=== PATIENT | female | born 1955 | race African-American/Black ===

== ENCOUNTER 2020-05-15 11:32 | Emergency (ER) | payer MEDICARE, OTHER ==
[~2020-05-15] VITALS: Ht 160 cm; Wt 95.5 kg
[~2020-05-15 11:32] MED LIST: AMOX500C2 PO; ASCO500 PO; ASPI-1111 PO; CYAN500T2 PO; CYCL05OE OU; DIPH1TAB24 PO; IBUP-2070 PO; IRON-24 PO; LORA10TA7 PO; NIFE30TA98 PO; OXYC-601 PO; SITA1TAB2 PO; SYMB8060 IH
[2020-05-15] MEDS ORDERED: KETOROLAC TROMETHAMINE 30 MG/ML VIAL IM ONE (12:15)
[2020-05-15] MEDS ORDERED: CYCLOBENZAPRINE HCL 10 MG TABLET PO ONE (12:15)
[2020-05-15] MEDS ORDERED: HYDROCODONE/ACETAMINOPHEN 5-325 MG TABLET PO ONE (12:15)
[2020-05-15 13:23] VITALS: BP 139/58
== END 2020-05-15 13:34 | disposition home or self-care (01) ==
LOC: EMS 11:32
DX: M79.18 Myalgia, other site (principal); J44.9 Chronic obstructive pulmonary disease, unspecified; E11.9 Type 2 diabetes mellitus without complications; E78.00 Pure hypercholesterolemia, unspecified; I10 Essential (primary) hypertension; Z90.710 Acquired absence of both cervix and uterus; F17.210 Nicotine dependence, cigarettes, uncomplicated; Z88.4 Allergy status to anesthetic agent; Z79.899 Other long term (current) drug therapy; Z79.82 Long term (current) use of aspirin
CPT/HCPCS: 71045; 82962; 96372; 99283; J1885

== ENCOUNTER 2021-03-14 20:40 | Emergency (ER) | payer MEDICARE, OTHER ==
[~2021-03-14] VITALS: Ht 160 cm; Wt 95.5 kg
[~2021-03-14 20:40] MED LIST changes: -AMOX500C2 PO; -ASPI-1111 PO; +ASPI-1444 PO; +OXYC-490 PO; -OXYC-601 PO
[2021-03-14] MEDS ORDERED: HYDROmorphone 2 MG/ML VIAL IVP ONE (21:30)
[2021-03-14] MEDS ORDERED: OxyCODONE HCL/ACETAMINOPHEN 5-325 MG TABLET PO ONE (21:45)
[2021-03-14 22:55] VITALS: BP 129/65
== END 2021-03-14 23:08 | disposition home or self-care (01) ==
LOC: EMS 20:47
DX: M54.42 Lumbago with sciatica, left side (principal); M54.41 Lumbago with sciatica, right side; R07.9 Chest pain, unspecified; G89.29 Other chronic pain; F17.210 Nicotine dependence, cigarettes, uncomplicated; J44.9 Chronic obstructive pulmonary disease, unspecified; E11.9 Type 2 diabetes mellitus without complications; E78.00 Pure hypercholesterolemia, unspecified; I10 Essential (primary) hypertension; Z90.710 Acquired absence of both cervix and uterus; Z79.82 Long term (current) use of aspirin
CPT/HCPCS: 71045; 99283

== ENCOUNTER 2022-03-27 08:29 | Emergency (ER) | payer MEDICARE, OTHER ==
[~2022-03-27] VITALS: Ht 160 cm; Wt 97.3 kg
[2022-03-27] MEDS ORDERED: HYDR200T38 PO (08:37)
[2022-03-27 09:35] LABS: BASOPHILS % (AUTO) 0.7 % (0.0-2.0); EOSINOPHILS % (AUTO) 1.3 % (1.0-6.0); HEMATOCRIT 35.6 % (36-46); HEMOGLOBIN 11.5 g/dL (12.0-16.0); LYMPHOCYTES # (AUTO) 1.7 K/uL (1.0-4.8); LYMPHOCYTES % (AUTO) 25.2 % (22.0-44.0); MEAN CORPUSCULAR HEMOGLOBIN 27.6 pg (26.0-34.0); MEAN CORPUSCULAR HGB CONC 32.3 G/dL (31.0-37.0); MEAN CORPUSCULAR VOLUME 86 fL (80-100); MONOCYTES # (AUTO) 0.5 K/uL (0.1-1.0); MONOCYTES % (AUTO) 8.1 % (2.0-9.0); NEUTROPHILS # (AUTO) 4.4 K/uL (1.8-7.7); NEUTROPHILS % (AUTO) 64.7 % (40.0-70.0); PLATELET COUNT (AUTO) 327 K/uL (150-450); RED BLOOD CELL COUNT(AUTO) 4.16 MIL/uL (4.00-5.20); RED CELL DISTRIBUTION WIDTH 15.9 % (11.5-14.5)
[2022-03-27 09:44] LABS: ANION GAP 3 mmol/L (8-16); CALCIUM, TOTAL 8.8 mg/dL (8.8-10.5); CARBON DIOXIDE 38 mmol/L (22-29); CHLORIDE 101 mmol/L (98-107); CREATININE 0.59 mg/dL (0.60-1.30); GLUCOSE,RANDOM 137 mg/dL (70-110); POTASSIUM 3.2 mmol/L (3.5-5.1); SODIUM SERUM 142 mmol/L (136-145); UREA NITROGEN, BLOOD 8 mg/dL (7-18)
[2022-03-27 09:45] LABS: APPEARANCE,URINE HAZY (CLEAR); BILIRUBIN,URINE NEGATIVE (NEGATIVE); GLUCOSE, URINE (UA) TRACE mg/dL (NEGATIVE); KETONES,URINE NEGATIVE (NEGATIVE); LEUKOCYTE ESTERASE ,URINE SMALL (NEGATIVE); NITRATE,URINE NEGATIVE (NEGATIVE); OCCULT BLOOD,URINE NEGATIVE (NEGATIVE); PH,URINE 6.5 (5.0-8.0); PROTEIN,URINE 30-70 mg/dL (NEGATIVE); SPECIFIC GRAVITIY, URINE 1.032 (1.003-1.030)
[2022-03-27 09:50] LABS: ALANINE AMINOTRANSFERASE 13 U/L (12-78); ALBUMIN 3.4 g/dL (3.4-5.0); ALKALINE PHOSPHATASE 91 U/L (46-116); ASPARTATE AMINOTRANSFERASE 14 U/L (15-37); BILIRUBIN,TOTAL 0.4 mg/dL (0.1-1.0); LIPASE 106 U/L (73-393); TOTAL PROTEIN, SERUM 7.5 g/dL (6.4-8.2)
[2022-03-27 09:51] LABS: GLOMERULAR FILTR. RATE CALC > 60 mL/min (>60)
[2022-03-27 10:34] LABS: BACTERIA,URINE Few /HPF (None Seen); RBC,URINE None Seen /HPF (0-2); SQUAMOUS EPITHELIAL CELL,UR Few /LPF (None Seen); WBC,URINE None Seen /HPF (0-5)
[2022-03-27] MEDS ORDERED: MONT-40 PO (11:28)
[2022-03-27] MEDS ORDERED: BUDE10.27 IH (11:28)
[2022-03-27] MEDS ORDERED: ALBU8HFA IH (11:28)
[2022-03-27] MEDS ORDERED: SITA1TAB6 PO (11:28)
[2022-03-27] MEDS ORDERED: MAG HYDROX/AL HYDROX/SIMETH ES 30 ML SUSPENSION UDCUP PO ONE (11:30)
[2022-03-27] MEDS ORDERED: PHENOBARB/HYOSCY/ATROPINE/SCOP 5 ML UDCUP ELIXIR PO ONE (11:30)
[2022-03-27] MEDS ORDERED: OxyCODONE HCL/ACETAMINOPHEN 5-325 MG TABLET PO ONE (13:15)
[2022-03-27] MEDS ORDERED: KETOROLAC TROMETHAMINE 60 MG/2 ML VIAL IM ONE (13:15)
[2022-03-27 14:24] VITALS: BP 145/82
[2022-03-27] MEDS ORDERED: METR500 PO (14:51)
== END 2022-03-27 15:05 | disposition home or self-care (01) ==
LOC: EMS 08:40
DX: M79.18 Myalgia, other site (principal); R10.9 Unspecified abdominal pain; J44.9 Chronic obstructive pulmonary disease, unspecified; E11.9 Type 2 diabetes mellitus without complications; I10 Essential (primary) hypertension; Z88.4 Allergy status to anesthetic agent; Z79.899 Other long term (current) drug therapy
CPT/HCPCS: 80053; 81001; 83690; 84484; 85025; 36415; 99284; 93005; 96372; J1885

== ENCOUNTER 2024-07-21 20:44 | Emergency (ER) | payer MEDICARE, MEDICAID ==
[~2024-07-21] VITALS: Ht 162.6 cm; Wt 97.3 kg
[~2024-07-21 20:44] MED LIST changes: +ALBU18HF12 IH; +AMLO-258 PO; -ASCO500 PO; -ASPI-1444 PO; +ATOR10TA PO; -CYAN500T2 PO; -CYCL05OE OU; +DICY-1 PO; +DIPH12.55 PO; -DIPH1TAB24 PO; +HYDR200T38 PO; +IBUP-1492 PO; -IBUP-2070 PO; +IPRA3AMP24 NEB; -IRON-24 PO; +LOPE-232 PO; -LORA10TA7 PO; +MONT-40 PO; -NIFE30TA98 PO; -OXYC-490 PO; -SITA1TAB2 PO; +SITA1TAB6 PO; -SYMB8060 IH; +[UNRECOGNIZED DRUG - CODE] PO
[2024-07-21 20:45] VITALS: BP 155/69; PULSE 61; RESP 20; TEMP 97.9; O2SAT 94
[2024-07-21] MEDS ORDERED: METO50 PO (20:57)
[2024-07-21] MEDS ORDERED: POTA8TAB71 PO (20:57)
[2024-07-21] MEDS ORDERED: DOXY75CA5 PO (20:57)
[2024-07-21] MEDS ORDERED: GABA-1181 PO (20:57)
[2024-07-21] MEDS ORDERED: GLIP5TAB16 PO (20:57)
[2024-07-22] MEDS: TraMADol HCL 50 MG TABLET PO ONE (01:49)
[2024-07-22] MEDS: LIDOCAINE 5% TRANSDERMAL PATCH TD ONE (01:49)
[2024-07-22] MEDS ORDERED: TRAM50TA5 PO (03:31)
[2024-07-22] MEDS ORDERED: LIDO700A15 TP (03:32)
[2024-07-22] MEDS ORDERED: CYCL-448 PO (03:36)
== END 2024-07-22 04:21 | disposition home or self-care (01) ==
LOC: EMS 20:44
DX: M25.552 Pain in left hip (principal); M79.605 Pain in left leg; J44.9 Chronic obstructive pulmonary disease, unspecified; E11.9 Type 2 diabetes mellitus without complications; I10 Essential (primary) hypertension; E78.00 Pure hypercholesterolemia, unspecified; F17.210 Nicotine dependence, cigarettes, uncomplicated; Z88.4 Allergy status to anesthetic agent; Z90.710 Acquired absence of both cervix and uterus; Z79.899 Other long term (current) drug therapy
CPT/HCPCS: 73503; 82962; 99283